=== PATIENT | female | born 1965 | race Caucasian/White ===

== ENCOUNTER 2019-11-08 07:54 | Day surgery (SDC) | payer BC ==
[~2019-11-08 07:54] MED LIST: Sodium Chloride 0.9% 10 ML Syringe FLUSH PRN
[2019-11-08] MEDS: Lactated Ringers 1,000 ML IV SCH (08:23)
[2019-11-08] MEDS ORDERED: Midazolam 1 MG/ML 2 ML SDV ONE ×2 (08:29→09:00)
[2019-11-08] MEDS ORDERED: Propofol 200 MG/20 ML SDV ONE ×2 (08:30→09:00)
--- NOTE | 2019-11-08 09:10 | PCM.PN ---
- General Info Date of Service: 11/08/19 - Review of Systems Systems Review Comment:: 53-year-old female here for colonoscopy. She has a history of diverticular disease of the colon. It is been approximately 5 years since her last colonoscopy. She is medically stable to proceed today. Her recent history and physical is reviewed and no significant changes are noted. I have discussed the proposed colonoscopy with the patient. Risks such as but not limited to bleeding and GI injury reviewed. She agrees to proceed. - Patient Data Vitals - Most Recent: Last Vital Signs Temp 97.2 F 11/08/19 08:15 Pulse 61 11/08/19 08:15 Resp 18 11/08/19 08:15 BP 106/55 L 11/08/19 08:15 Pulse Ox 95 11/08/19 08:15 Weight - Most Recent: 90.718 kg Med Orders - Current: Current Medications Lactated Ringer's (Ringers, Lactated) 1,000 mls @ 999 mls/hr IV .BOLUS BEULAH Last Admin: 11/08/19 08:23 Dose: 999 mls/hr Documented by: Sodium Chloride (Saline Flush) 10 ml FLUSH ASDIRECTED PRN PRN Reason: Keep Vein Open Discontinued Medications Midazolam HCl (Versed 1 Mg/Ml) Confirm Administered Dose 2 mg .ROUTE .STK-MED ONE Stop: 11/08/19 08:30 Propofol (Diprivan 20 Ml) Confirm Administered Dose 400 mg .ROUTE .STK-MED ONE Stop: 11/08/19 08:31 Sepsis Event Note - Focused Exam Vital Signs: Vital Signs Temp Pulse Resp BP Pulse Ox 11/08/19 08:15 97.2 F 61 18 106/55 L 95 - Problem List Review Problem List Initiated/Reviewed/Updated: Yes - Assessment Assessment:: Colon cancer screening - Plan Plan:: Colonoscopy
--- NOTE | 2019-11-08 09:56 | PCM.OPNOTE ---
- General Post-Op/Procedure Note Date of Surgery/Procedure: 11/08/19 Operative Procedure(s): Colonoscopy with Polypectomy Findings: Small sigmoid colon polyp Moderate sigmoid diverticulosis Pre Op Diagnosis: Colon cancer screening Post-Op Diagnosis: Colon polyp. Sigmoid diverticulosis Anesthesia Technique: MAC Primary Surgeon: Benoit Busby Pathology: Colon polyp EBL in mLs: 0 Complications: None Condition: Good
[2019-11-08 10:31] VITALS: BP 110/52; PULSE 59
--- NOTE | 2019-11-08 11:11 | OR ---
Date of Procedure: 11/08/2019 PREOPERATIVE DIAGNOSIS: Colon cancer screening. POSTOPERATIVE DIAGNOSIS: Sigmoid diverticulosis and sigmoid colon polyp. OPERATIONS PERFORMED: Colonoscopy with polypectomy. INDICATIONS FOR SURGERY: This 53-year-old female is here for a screening colonoscopy. Her last colon exam was approximately 5 years ago. FINDINGS: The patient has a moderate degree of sigmoid diverticulosis. This does not appear to be acutely inflamed, or otherwise, complicated. There is also a sigmoid colon polyp. This is 5 mm in size, located approximately 20 cm from the anal verge. The remainder of the colon and rectum appear normal. DESCRIPTION OF PROCEDURE: The patient was taken to the operating room. She was given intravenous sedation, and with her in the left lateral decubitus position, digital rectal exam was performed showing no rectal masses. The Olympus colonoscope was inserted into the rectum. Retroflexed examination of the rectal canal was performed. The scope was then carefully advanced under direct visualization through the entire length of the colon until the cecum was reached. The colon was somewhat tortuous and reaching the cecum did require hand pressure as well as placing the patient in the supine position, but eventually the cecum was able to be safely accessed and thoroughly viewed. The normal internal cecal anatomy is noted including the appendiceal orifice and the ileocecal valve. The light was also noted to transilluminate the abdominal wall in the right lower quadrant. After examining the cecum, the scope was slowly withdrawn sequentially re-examining the colonic segments. During withdrawal of the scope, the above-described polyp was identified. This was removed with a cautery snare and retrieved into a polyp trap. Examination is then completed, and with no sign of any bleeding or other complication, the scope was removed, and the patient was taken from the operating room in satisfactory condition. ESTIMATED BLOOD LOSS: 0. COMPLICATIONS: None. PROGNOSIS: Good. GURMEET Busby MD /[id number]
== END 2019-11-08 11:07 | disposition home or self-care (01) ==
LOC: LL.SDS 07:54
PROVIDERS: ATTEND Surgery
DX: Z12.11 Encounter for screening for malignant neoplasm of colon (principal); D12.5 Benign neoplasm of sigmoid colon; K57.30 Diverticulosis of large intestine without perforation or abscess without bleeding; Q43.8 Other specified congenital malformations of intestine; Z88.8 Allergy status to other drugs, medicaments and biological substances; Z88.1 Allergy status to other antibiotic agents
CPT/HCPCS: 00812; J2250; J2704; J7120

== ENCOUNTER 2023-07-28 10:40 | Day surgery (SDC) | payer BC ==
[~2023-07-28 10:40] MED LIST changes: +Midazolam 1 MG/ML 2 ML SDV ONE; +Propofol 200 MG/20 ML SDV ONE; -Sodium Chloride 0.9% 10 ML Syringe FLUSH PRN
[2023-07-28] MEDS ORDERED: Sodium Chloride 0.9% 10 ML Syringe FLUSH PRN (11:00)
[2023-07-28] MEDS: Lactated Ringers 1,000 ML IV SCH (11:05)
[2023-07-28 17:37] VITALS: BP 118/52; PULSE 67
== END 2023-07-28 14:10 ==
LOC: LL.SDS 10:40
PROVIDERS: ATTEND Surgery
DX: D12.8 Benign neoplasm of rectum (principal); K57.30 Diverticulosis of large intestine without perforation or abscess without bleeding; E78.49 Other hyperlipidemia; Z86.010 Personal history of colon polyps
CPT/HCPCS: 00811; J2250; J2704; J7120

== ENCOUNTER 2025-02-06 19:20 | Emergency (ER) | payer BC ==
[2025-02-06 20:01] VITALS: BP 140/68; PULSE 65
== END 2025-02-06 21:00 | disposition home or self-care (01) ==
LOC: LL.ED 19:20
DX: S52.611A Displaced fracture of right ulna styloid process, initial encounter for closed fracture (principal); Z79.899 Other long term (current) drug therapy; Z90.710 Acquired absence of both cervix and uterus; Z88.1 Allergy status to other antibiotic agents; Z88.2 Allergy status to sulfonamides; W00.0XXA Fall on same level due to ice and snow, initial encounter
CPT/HCPCS: 73110-RT; 99283; A9270-GY